=== PATIENT | male | born 1990 | race Caucasian/White ===

== ENCOUNTER 2017-10-07 12:33 | Emergency (ER) | payer MEDICARE, MEDICAID ==
[2017-10-07 14:13] LABS: ABS Basophils 0.1 10^3/ul (0-0.2); ABS Eosinophils 0 10^3/ul (0-0.6); ABS Lymphocytes 2.2 10^3/ul (1.0-4.8); ABS Monocytes 0.6 10^3/ul (0-0.8); ABS Neutrophils 2.9 10^3/ul (1.5-7.7); ABS Nucleated RBC 0 10^3/ul; Eosinophil % 0.1 % (0-6); Hematocrit 42 % (42-52); Hemoglobin 14.5 g/dl (14.0-18.0); Lymphocyte % 37.8 % (25-47); Mean Corpuscular HGB Conc 35 g/dl (31-36); Mean Corpuscular Hemoglobin 29 pg (27-31); Mean Corpuscular Volume 82 fL (80-94); Mean Platelet Volume 7 um3 (7.4-10.4); Nucleated Red Blood Cells % 0.1; Platelet Count 260 10^3/ul (150-450); Red Cell Distribution Width 14 % (10.5-15); White Blood Count 5.7 10^3/ul (3.5-10.8)
--- NOTE | 2017-10-07 14:16 | ED ---
Psychiatric Complaint - HPI Summary HPI Summary: Patient is a 26-year-old male who presents to the ED with police after stating he has been hearing voices since Wednesday, which is 3 days ago. He has history of hearing voices and does not take medications. The voices are telling him to "hurt things". Mother is at bedside and states he would never heard anything. He denies any suicidal ideations, but endorses homicidal ideations. He will not disclose who he would like to hurt. He does not elaborate on the voices he is hearing. Denies any self-harm. He states he smokes weed to calm down the voices, but doesn't have any currently. - History Of Current Complaint Chief Complaint: EDMentalHealth Time Seen by Provider: 10/07/17 12:53 Hx Obtained From: Patient Onset/Duration: Gradual Onset Timing: Constant Severity Initially: Moderate Severity Currently: Moderate Aggravating Factor(s): Nothing Alleviating Factor(s): Nothing Associated Signs And Symptoms: Positive: Hallucinating Has Homicidal: Reports: Thoughts - Risk Factor(s) Completed Suicide Risk Factors: Male, White [place] - Allergies/Home Medications Allergies/Adverse Reactions: Allergies Allergy/AdvReac Type Severity Reaction Status Date / Time MS Latex [Latex] Allergy Severe Rash Verified 10/07/17 18:03 MS Amoxicillin [Amoxicillin] Allergy Hives Verified 10/07/17 18:03 MS Cefaclor [From Ceclor] Allergy Swelling Verified 10/07/17 18:03 Of Face,Lips,& Throat MS Erythromycin Allergy See Comment Verified 10/07/17 18:03 [Erythromycin] Home Medications: Home Medications Insulin ASPART (NF) [Novolog (NF)] 100 unit SUBCUT AC 10/07/17 [History Confirmed 10/07/17] Insulin Degludec [Tresiba Flextouch] 45 unit SUBCUT DAILY 10/07/17 [History Confirmed 10/07/17] PMH/Surg Hx/FS Hx/Imm Hx Previously Healthy: Yes Endocrine/Hematology History: Reports: Hx Diabetes Respiratory History: Reports: Hx Asthma - Surgical History Surgery Procedure, Year, and Place: Appy, "Arnold-[facility]" malformatin - Immunization History Hx Pertussis Vaccination: No Immunizations Up to Date: Unable to Obtain/Confirm Infectious Disease History: No Infectious Disease History: Denies: Traveled Outside the US in Last 30 Days - Social History Occupation: Unemployed Lives: Alone Alcohol Use: Rare Hx Substance Use: Yes Substance Use Type: Reports: Marijuana Substance Use Comment - Amount & Last Used: freq Hx Tobacco Use: Yes Smoking Status (MU): Light Every Day Tobacco Smoker Type: Cigarettes Amount Used/How Often: 1 PPD Have You Smoked in the Last Year: Yes Review of Systems Constitutional: Negative Negative: Fever, Chills, Fatigue, Skin Diaphoresis Eyes: Negative Cardiovascular: Negative Negative: Shortness Of Breath Negative: Abdominal Pain, Vomiting, Diarrhea, Nausea Genitourinary: Negative Positive: no symptoms reported, see HPI Musculoskeletal: Negative Negative: Headache, Weakness, Paresthesia Positive: Other - angry and hallucinating All Other Systems Reviewed And Are Negative: Yes Physical Exam Triage Information Reviewed: Yes Vital Signs On Initial Exam: Initial Vitals Temp Pulse Resp BP Pulse Ox 98.8 F 80 18 133/85 98 10/07/17 12:52 10/07/17 12:52 10/07/17 12:52 10/07/17 12:52 10/07/17 12:52 Vital Signs Reviewed: Yes Appearance: Positive: Well-Appearing, Well-Nourished Skin: Positive: Warm, Skin Color Reflects Adequate Perfusion Head/Face: Positive: Normal Head/Face Inspection Eyes: Positive: EOMI, CONSTANCE, Conjunctiva Clear Neck: Positive: Supple, No Lymphadenopathy Respiratory/Lung Sounds: Positive: Clear to Auscultation, Breath Sounds Present Cardiovascular: Positive: RRR, Pulses are Symmetrical in both Upper and Lower Extremities Neurological: Positive: Normal, Sensory/Motor Intact, Alert, Oriented to Person Place, Time, Speech Normal Psychiatric: Positive: Patient Uncooperative for Exam AVPU Assessment: Alert Diagnostics - Vital Signs Vital Signs Temp Pulse Resp BP Pulse Ox 10/07/17 12:52 98.8 F 80 18 133/85 98 - Laboratory Result Diagrams: 10/07/17 14:00 10/07/17 14:00 Lab Statement: Any lab studies that have been ordered have been reviewed, and results considered in the medical decision making process. Course/Dx - Course Course Of Treatment: During the course of treatment, I have explained to the patient and mother that the process for a mental health evaluation is lengthy. They are upset by this, but I have advised the patient remained calm and stay in the room as security will be called otherwise. Labs and urine obtained. He is medically cleared and is sent to [facility] for evaluation. Dr. Durán cleared patient for home as he is deemed safe. I agree with this plan. - Differential Dx/Clinical Impression Provider Diagnosis: Hallucinations Discharge - Discharge Plan Condition: Stable Disposition: HOME Referrals: [facility] [Other] (Follow up with your nuclear medicine officer as ordered) [facility] [Outside] - If Needed (Walk In Clinic is available on Wednesday, Wednesday, Wednesday and Wednesday from 8am till 2pm, if you are interested in starting to see a mental health counselor for the voices that you have been hearing.) MALENA Garcia [Primary Care Provider] - Additional Instructions: Per completion of a mental health evaluation, you are cleared for release and do not require inpatient psychiatric hospitalization at this time. Please go to nearest emergency room or call 911 if safety concerns arise or condition worsens. Important Phone Numbers: [facility] ph:[phone] Su[facility] Crisis [facility] ph:[phone] National Suicide Prevention Lifeline ph:[phone] ([phone]) [facility] ph:[phone] Alcoholics Anonymous ph:[phone] [facility] ph:[phone] [place] [employer] ph:[phone]
[2017-10-07 15:24] LABS: Urine Appearance Clear; Urine Blood Negative (Negative); Urine Color Yellow; Urine Ketones Negative (Negative); Urine Protein Negative (Negative); Urine Specific Gravity 1.015 (1.010-1.030); Urine Urobilinogen Negative (Negative)
[2017-10-07 18:53] VITALS: BP 132/83
== END 2017-10-07 18:52 | disposition home or self-care (01) ==
LOC: ED 12:33
DX: R44.3 Hallucinations, unspecified (principal); F17.210 Nicotine dependence, cigarettes, uncomplicated
CPT/HCPCS: 36415; 80053; 80307; 80320; 80329; 81003; 84443; 85025; 99284; G0480

== ENCOUNTER 2018-02-06 21:39 | Emergency (ER) | payer MEDICARE, MEDICAID ==
[2018-02-06] MEDS ORDERED: Pantoprazole IV* 40 MG IV ONE (22:15)
[2018-02-06] MEDS ORDERED: NS 0.9% 1000 ML* 2,000 ML IV ONE (22:15)
[2018-02-06] MEDS ORDERED: Metoclopramide IV* 5 MG/ML 2 ML VIAL IV ONE (22:15)
[2018-02-06 22:32] LABS: ABS Basophils 0.1 10^3/ul (0-0.2); ABS Eosinophils 0 10^3/ul (0-0.6); ABS Lymphocytes 2.9 10^3/ul (1.0-4.8); ABS Monocytes 0.7 10^3/ul (0-0.8); ABS Neutrophils 6.2 10^3/ul (1.5-7.7); ABS Nucleated RBC 0 10^3/ul; Eosinophil % 0.3 % (0-6); Hematocrit 45 % (42-52); Hemoglobin 15.7 g/dl (14.0-18.0); Lymphocyte % 29.5 % (25-47); Mean Corpuscular HGB Conc 35 g/dl (31-36); Mean Corpuscular Hemoglobin 29 pg (27-31); Mean Corpuscular Volume 84 fL (80-94); Mean Platelet Volume 7.6 um3 (7.4-10.4); Nucleated Red Blood Cells % 0; Platelet Count 344 10^3/ul (150-450); Red Blood Count 5.41 10^6/ul (4.00-5.40); Red Cell Distribution Width 14 % (10.5-15)
[2018-02-06 22:58] LABS: EGFR Non-African American 78.9 (>60)
--- NOTE | 2018-02-07 00:41 | ED ---
Meliza Valero Devyn, scribed for Genesis Polanco MD on 02/06/18 at 2249 . HPI Diabetic - HPI Summary HPI Summary: This patient is a 27 year old M BIBA to [facility] accompanied by a woman with a chief complaint of N/V since this morning. Pt states he has been constantly nauseous and vomiting anything he ate during the day except for Powerade. A woman accompanying him says that he is on a sliding scale for meals to treat IDDM. His last dose of insulin was at noon for lunch, since his blood sugar has been low all day. When the ambulance came in, his blood sugar was around 104 and has since gone up to 165 after being given an emergency glucose packet. PMHx of IDDM since age 6. Pt denies diarrhea. - History Of Current Complaint Chief Complaint: EDDiabeticProb Time Seen by Provider: 02/06/18 22:04 Hx Obtained From: Patient Onset/Duration: Sudden Onset - all day Timing: Constant Severity Initially: Moderate Severity Currently: Moderate Character: Alert Associated Signs & Symptoms: Nausea, Vomiting - Allergies/Home Medications Allergies/Adverse Reactions: Allergies Allergy/AdvReac Type Severity Reaction Status Date / Time MS Latex [Latex] Allergy Severe Rash Verified 10/07/17 18:03 MS Amoxicillin [Amoxicillin] Allergy Hives Verified 10/07/17 18:03 MS Cefaclor [From Ceclor] Allergy Swelling Verified 10/07/17 18:03 Of Face,Lips,& Throat MS Erythromycin Allergy See Comment Verified 10/07/17 18:03 [Erythromycin] PMH/Surg Hx/FS Hx/Imm Hx Endocrine/Hematology History: Reports: Hx Diabetes Respiratory History: Reports: Hx Asthma Psychiatric History: Denies: Hx Eating Disorder, Hx of Violent Episodes Against Others - Surgical History Surgery Procedure, Year, and Place: [facility]y, "Arnold-[facility]ari" malformatin Infectious Disease History: No Infectious Disease History: Denies: Traveled Outside the US in Last 30 Days - Family History Known Family History: Positive: Hypertension - uncle, Diabetes - Social History Alcohol Use: Rare Hx Substance Use: Yes Substance Use Type: Reports: Marijuana Substance Use Comment - Amount & Last Used: freq Hx Tobacco Use: Yes Smoking Status (MU): Current Every Day Smoker Type: Cigarettes Amount Used/How Often: 1 PPD Have You Smoked in the Last Year: Yes Review of Systems Negative: Fever Positive: Vomiting, Nausea. Negative: Diarrhea All Other Systems Reviewed And Are Negative: Yes Physical Exam - Summary Physical Exam Summary: VITAL SIGNS: Reviewed. GENERAL: Patient is a well-developed and nourished male who is lying comfortable in the stretcher. Patient is not in any acute respiratory distress. HEAD AND FACE: No signs of trauma. No ecchymosis, hematomas or skull depressions. No sinus tenderness. EYES: PERRLA, EOMI x 2, No injected conjunctiva, no nystagmus. EARS: Hearing grossly intact. Ear canals and tympanic membranes are within normal limits. MOUTH: Oropharynx within normal limits. NECK: Supple, trachea is midline, no adenopathy, no JVD, no carotid bruit, no c- spine tenderness, neck with full ROM. CHEST: Symmetric, no tenderness at palpation LUNGS: Clear to auscultation bilaterally. No wheezing or crackles. CVS: Regular rate and rhythm, S1 and S2 present, no murmurs or gallops appreciated. ABDOMEN: Soft, non-tender. No signs of distention. No rebound no guarding, and no masses palpated. Bowel sounds are normal. EXTREMITIES: FROM in all major joints, no edema, no cyanosis or clubbing. NEURO: Alert and oriented x 3. No acute neurological deficits. Speech is normal and follows commands. SKIN: Dry and warm Triage Information Reviewed: Yes Vital Signs On Initial Exam: Initial Vitals Temp Pulse Resp BP Pulse Ox 98.3 F 86 16 158/100 97 02/06/18 21:56 02/06/18 21:56 02/06/18 21:56 02/06/18 21:56 02/06/18 21:56 Vital Signs Reviewed: Yes Diagnostics - Vital Signs Vital Signs Temp Pulse Resp BP Pulse Ox 02/06/18 21:56 98.3 F 86 16 158/100 97 - Laboratory Lab Results: Lab Results 02/06/18 02/06/18 Range/Units 22:09 22:27 WBC 10.0 (3.5-10.8) 10^3/ul RBC 5.41 H (4.00-5.40) 10^6/ul Hgb 15.7 (14.0-18.0) g/dl Hct 45 (42-52) % MCV 84 (80-94) fL MCH 29 (27-31) pg MCHC 35 (31-36) g/dl RDW 14 (10.5-15) % Plt Count 344 (150-450) 10^3/ul MPV 7.6 (7.4-10.4) um3 Neut % (Auto) 62.4 (38-83) % Lymph % (Auto) 29.5 (25-47) % Wagoner % (Auto) 6.7 (0-7) % Eos % (Auto) 0.3 (0-6) % Baso % (Auto) 1.1 (0-2) % Absolute Neuts (auto) 6.2 (1.5-7.7) 10^3/ul Absolute Lymphs (auto) 2.9 (1.0-4.8) 10^3/ul Absolute Monos (auto) 0.7 (0-0.8) 10^3/ul Absolute Eos (auto) 0 (0-0.6) 10^3/ul Absolute Basos (auto) 0.1 (0-0.2) 10^3/ul Absolute Nucleated RBC 0 10^3/ul Nucleated RBC % 0 POC Glucose (mg/dL) 165 H (70-100) mg/dL Result Diagrams: 02/06/18 22:27 02/06/18 22:27 Lab Statement: Any lab studies that have been ordered have been reviewed, and results considered in the medical decision making process. Diabetic Course/Dx - Course Assessment/Plan: This patient is a 27 year old M BIBA to [facility] accompanied by a woman with a chief complaint of N/V since this morning. Pt states he has been constantly nauseous and vomiting anything he ate during the day except for Powerade. A woman accompanying him says that he is on a sliding scale for meals to treat IDDM. His last dose of insulin was at noon for lunch, since his blood sugar has been low all day. When the ambulance came in, his blood sugar was around 104 and has since gone up to 165 after being given an emergency glucose packet. PMHx of IDDM since age 6. Pt denies diarrhea. In the ED course the patient was given Reglan, Protonix, and IV fluids. This improved pt symptoms, he is now tolerating food in the ED. Test results show no significant abnormalities, except for blood glucose at 164. Patient will be discharged with prescription for Reglan and Protonix and follow up from PCP. The patient is agreeable with this plan. - Diagnoses Provider Diagnoses: Vomiting Discharge - Sign-Out/Discharge Documenting (check all that apply): Discharge/Admit/Transfer - discharge - Discharge Plan Condition: Stable Disposition: HOME Prescriptions: Metoclopramide TAB* [Reglan TAB*] 10 mg PO Q6H PRN #30 tab PRN Reason: Nausea/Vomiting Pantoprazole TAB (NF) [Protonix TAB (NF)] 40 mg PO DAILY #30 tab Patient Education Materials: Acute Nausea and Vomiting (ED) Referrals: Evie Brunson MD [Primary Care Provider] - Additional Instructions: RETURN TO THE EMERGENCY DEPARTMENT FOR CHANGING OR WORSENING SYMPTOMS The documentation as recorded by the Meliza tapia Devyn accurately reflects the service I personally performed and the decisions made by Collin maria Abdul, MD.
[2018-02-07 00:42] VITALS: BP 115/70
== END 2018-02-07 00:30 | disposition home or self-care (01) ==
LOC: ED 21:39
DX: R11.2 Nausea with vomiting, unspecified (principal); E11.9 Type 2 diabetes mellitus without complications; Z79.4 Long term (current) use of insulin; F17.210 Nicotine dependence, cigarettes, uncomplicated; Z88.3 Allergy status to other anti-infective agents
CPT/HCPCS: 36415; 80053; 82150; 82550; 83690; 83735; 85025; 96361; 96374; 96375; 99284; J2765

== ENCOUNTER 2019-07-03 10:12 | Emergency (ER) | payer MEDICARE, MEDICAID ==
[2019-07-03] MEDS ORDERED: NS 0.9% 1000 ML** 1,000 ML IV ONE (10:29)
--- NOTE | 2019-07-03 10:31 | ED ---
HPI Diabetic - HPI Summary HPI Summary: This pt is a 28 y/o male, with hx of DM type 1, presenting to [facility] via EMS for altered mental status. Pt reports he woke up not feeling well. At home, his finger stick glucose was 44. Per EMS, at scene pt was combative and altered. EMS reports finger stick glucose was 30 for them. EMS administered 1 liter of dextrose 10. Pt is vomiting upon arrival to the ED. Pt reports he injects insulin. He does not know his hemoglobin a1c. When asked he states he is in the [facility], the date is July 02, 2020, his age is 27 y/o, and the [place] president is [place]. - History Of Current Complaint Chief Complaint: EDDiabeticProb Time Seen by Provider: 07/03/19 10:22 Hx Obtained From: Patient, EMS Hx From Patient Unobtainable Due To: Altered Mental Status Onset/Duration: Sudden Onset, Still Present Timing: Constant Severity Currently: Moderate Character: Alert, Confused Aggravating: Nothing Alleviating: Nothing Associated Signs & Symptoms: Vomiting Related History: DM I - Allergies/Home Medications Allergies/Adverse Reactions: Allergies Allergy/AdvReac Type Severity Reaction Status Date / Time amoxicillin Allergy Anaphylatic Verified 07/03/19 10:38 Shock cefaclor [From Ceclor] Allergy Anaphylatic Verified 07/03/19 10:38 Shock erythromycin base Allergy Anaphylatic Verified 07/03/19 10:38 Shock Latex, Natural Rubber Allergy Hives Verified 07/03/19 10:38 PMH/Surg Hx/FS Hx/Imm Hx Endocrine/Hematology History: Reports: Hx Diabetes - Type 1 Respiratory History: Reports: Hx Asthma Psychiatric History: Denies: Hx Eating Disorder, Hx of Violent Episodes Against Others - Surgical History Surgery Procedure, Year, and [facility] Infectious Disease History: No Infectious Disease History: Denies: Traveled Outside the US in Last 30 Days - Family History Known Family History: Positive: Hypertension - uncle, Diabetes - Social History Alcohol Use: Rare Hx Substance Use: Yes Substance Use Type: Reports: Marijuana Substance Use Comment - Amount & Last Used: freq Hx Tobacco Use: Yes Smoking Status (MU): Current Every Day Smoker Type: Cigarettes Amount Used/How Often: 1 PPD Have You Smoked in the Last Year: Yes Review of Systems - ROS Summary Review of Systems Summary: ROS IS LIMITED DUE TO LEVEL 5 CAVEAT - pt with AMS Negative: Fever Positive: Vomiting Neurological: Other - POSITIVE: altered mental status All Other Systems Reviewed And Are Negative: No Physical Exam - Summary Physical Exam Summary: GENERAL: Patient is a well-developed and nourished male who is lying comfortable in the stretcher. Patient is not in any acute respiratory distress. HEAD AND FACE: No signs of trauma. No ecchymosis, hematomas or skull depressions. No sinus tenderness. EYES: PERRLA, EOMI x 2, No injected conjunctiva, no nystagmus. EARS: Hearing grossly intact. Ear canals and tympanic membranes are within normal limits. MOUTH: Oropharynx within normal limits. NECK: Supple, trachea is midline, no adenopathy, no JVD, no carotid bruit, no c- spine tenderness, neck with full ROM. CHEST: Symmetric, no tenderness at palpation LUNGS: Clear to auscultation bilaterally. No wheezing or crackles. CVS: Regular rate and rhythm, S1 and S2 present, no murmurs or gallops appreciated. ABDOMEN: Soft, non-tender. No signs of distention. No rebound no guarding, and no masses palpated. Bowel sounds are normal. EXTREMITIES: FROM in all major joints, no edema, no cyanosis or clubbing. NEURO: Alert and oriented x 1. Speech is normal and follows commands. SKIN: Diaphoretic and clammy. GCS: 15 Triage Information Reviewed: Yes Vital Signs On Initial Exam: Initial Vitals Temp Pulse Resp BP Pulse Ox 96.8 F 79 18 128/87 96 07/03/19 10:14 07/03/19 10:14 07/03/19 10:14 07/03/19 10:14 07/03/19 10:14 Vital Signs Reviewed: Yes Diagnostics - Vital Signs Vital Signs Temp Pulse Resp BP Pulse Ox 07/03/19 10:14 96.8 F 79 18 128/87 96 - Laboratory Result Diagrams: 07/03/19 10:36 07/03/19 10:36 Lab Statement: Any lab studies that have been ordered have been reviewed, and results considered in the medical decision making process. - Radiology Chest XR Radiology Interpretation Completed By: Radiologist Summary of Radiographic Findings: IMPRESSION: No evidence for acute intrathoracic disease. Dr. Rendon has reviewed this report. - CT Brain CT CT Interpretation Completed By: Radiologist Summary of CT Findings: IMPRESSION: No acute intracranial process evident. Dr. Rendon has reviewed this report. - EKG 10:28 Cardiac Rate: NL - at 75 bpm EKG Rhythm: Sinus Rhythm Summary of EKG Findings: EKG at 10:28 shows normal sinus rhythm at a rate of [address] elevations. Re-Evaluation - Re-Evaluation First Eval Re-Evaluation Time: 12:52 Change: Improved Comment: Pt is alert and oriente x3. Diabetic Course/Dx - Course Assessment/Plan: This patient is a 28-year-old male with a past medical history significant for insulin-dependent diabetes and GERD presents to the emergency room with a chief complaint of altered mental status. As per EMS the patient had a fingerstick of 30 therefore the patient was given D10 and transferred to the emergency room. The patient continues to be with altered mental status and confused. The patient was placed on a monitoring analyst, we obtain IV access, and the patient was given IV fluids and right now the fingerstick is 150. Blood work without any significant abnormality except for slight anemia, glucose 130, magnesium 1.7, alkaline phosphatase 113. chest x-ray impression: No evidence of acute intrathoracic disease. Head CT impression: No acute intracranial process. Patient reports a slight headache for which the patient was given Tylenol. Afterwards the patients symptoms have resolved. Finger stick is 118. At this time the patient was alert and oriented 3. Patient is neurological intact. At this point, I discussed all the findings and test results with the patient. Patient was instructed to return to the emergency room immediately if any of the symptoms return or worsen. Patient understand and agree. Neurological exam before discharge: Patient is alert and oriented x 3. No acute neurological deficits. Patient's vital signs are stable. Patient is to follow up with his PCP in the next 2 3 days. He understands and agrees. Plan of care was discussed with the patient and patient understands and agrees with the plan of care. All questions were answered at patient satisfaction. There were no further complaints or concerns. - Diagnoses Differential Dx: Diabetic Ketoacidosis, Hyperosmolar State, Hypoglycemia Provider Diagnoses: Hypoglycemia Discharge ED - Sign-Out/Discharge Documenting (check all that apply): Patient Departure - Discharge home - Discharge Plan Condition: Stable Disposition: HOME Patient Education Materials: Hypoglycemia in a Person with Diabetes (ED) Referrals: Robert Ramirez MD [Primary Care Provider] - Additional Instructions: FOLLOW UP WITH YOUR PRIMARY CARE PROVIDER IN 2-3 DAYS. RETURN TO THE EMERGENCY DEPARTMENT FOR ANY WORSENING OR NEW SYMPTOMS. - Billing Disposition and Condition Condition: STABLE Disposition: Home - Attestation Statements Document Initiated by Ruthibe: Yes Documenting Scribe: Elizabeth Porras Provider For Whom Scribe is Documenting (Include Credential): Tony Rendon MD Scribe Attestation: Elizabeth Valero, scribed for Tony Rendon MD on 07/04/19 at 0810. Scribe Documentation Reviewed: Yes Provider Attestation: The documentation as recorded by the Elizabeth tapia accurately reflects the service I personally performed and the decisions made by Tony maria MD Status of Scribe Document: Viewed
[2019-07-03 10:52] LABS: ABS Lymphocytes 1.4 10^3/ul (1.0-4.8); ABS Monocytes 0.4 10^3/ul (0-0.8); ABS Neutrophils 5.8 10^3/ul (1.5-7.7); Eosinophil % 0.1 %; Hematocrit 39 % (42-52); Hemoglobin 13.1 g/dL (14.0-18.0); Lymphocyte % 18.7 %; Mean Corpuscular HGB Conc 34 g/dL (31-36); Mean Corpuscular Hemoglobin 29 pg (27-31); Mean Corpuscular Volume 85 fL (80-94); Mean Platelet Volume 7.6 fL (7.4-10.4); Nucleated Red Blood Cells % 0.1; Platelet Count 211 10^3/uL (150-450); Red Cell Distribution Width 14 % (10-15); White Blood Count 7.7 10^3/uL (3.5-10.8)
[2019-07-03 11:07] LABS: Albumin 3.8 g/dL (3.2-5.2); Albumin/Globulin Ratio 1.6 (1-3); BUN/Creatinine Ratio 20.8 (8-20); Calcium 8.8 mg/dL (8.6-10.3); EGFR African American 156.2 (>60); EGFR Non-African American 129.1 (>60); Globulin 2.4 g/dL (2-4); Potassium 3.7 mmol/L (3.5-5.0); Total Bilirubin 0.3 mg/dL (0.2-1.0); Total Protein 6.2 g/dL (6.4-8.9)
[2019-07-03 11:08] LABS: Magnesium 1.7 mg/dL (1.9-2.7)
[2019-07-03] MEDS ORDERED: Magnesium Sulfate 1 GM IV* 1 GM/100 ML BAG IV ONE (11:18)
[2019-07-03 11:40] LABS: Alcohol < 10 mg/dL (<10); Salicylate < 2.50 mg/dL (<30)
[2019-07-03 11:56] LABS: TSH (Thyroid Stimulating Horm) 0.91 mcIU/mL (0.34-5.60)
[2019-07-03 12:06] LABS: Acetaminophen < 15 mcg/mL
[2019-07-03] MEDS ORDERED: Acetaminophen TAB* 325 MG ONE (12:52)
[2019-07-03] MEDS ORDERED: Acetaminophen TAB* 325 MG PO ONE (12:56)
[2019-07-03 12:58] VITALS: BP 122/80
== END 2019-07-03 13:59 | disposition home or self-care (01) ==
LOC: ED 10:12
DX: E10.649 Type 1 diabetes mellitus with hypoglycemia without coma (principal); Z79.4 Long term (current) use of insulin; K21.9 Gastro-esophageal reflux disease without esophagitis; J45.909 Unspecified asthma, uncomplicated; F17.210 Nicotine dependence, cigarettes, uncomplicated; Z88.0 Allergy status to penicillin
CPT/HCPCS: 36415; 70450; 71045; 80053; 80320; 80329; 82140; 83605; 83735; 84443; 84484; 85025; 93005; 96361; 96365; 99283; A9270-GY; G0480; J3475